=== PATIENT | female | born 1950 | race Caucasian/White ===

== ENCOUNTER 2019-02-21 23:12 | Emergency (ER) | payer OTHER ==
[~2019-02-21] VITALS: Ht 157.5 cm; Wt 68.9 kg
[2019-02-21 23:15] VITALS: Ht 157.5 cm; Wt 68.9 kg
[2019-02-22 01:40] VITALS: BP 169/86
== END 2019-02-22 01:40 | disposition home or self-care (01) ==
LOC: ED 23:12
DX: R42 Dizziness and giddiness (principal); R11.0 Nausea; H53.8 Other visual disturbances; I10 Essential (primary) hypertension; E78.00 Pure hypercholesterolemia, unspecified; E03.9 Hypothyroidism, unspecified
CPT/HCPCS: J8597